=== PATIENT | male | born 1955 | race Caucasian/White ===

== ENCOUNTER 2023-04-05 10:11 | Day surgery (SDC) | payer MEDICARE ==
[~2023-04-05] VITALS: Ht 170.2 cm; Wt 102.1 kg
[~2023-04-05 10:11] MED LIST: AMLO1TAB25 PO; BAYE81TA10 PO; CARV6.25 PO; CEFUROXIME 1MG/0.1ML INTRACAMERAL INJ As Ordered ONE; CYCLOPENTOLATE 1% OPHTH SOLN 2ML BTL OS SCH; FARX1TAB3 PO; FURO40TA2 PO; LEVO112T2 PO; LIDOCAINE 1% SDV 5ML VIAL As Ordered ONE; LISI5TAB11 PO; OFLOXACIN 0.3 % (OCUFLOX) OPTH SOL 5ML OS SCH; OMEG10002 PO; PANT40TA29 PO; PHENYLEPHRINE 2.5% OPHTH SOL 2ML OS SCH; POTA-151 PO; PROPARACAINE 0.5% OPHTH SOL 15ML OS ONE; ROSU10TA6 PO; TROPICAMIDE 1% OPHTH SOLN 15ML OS SCH; VITMTA PO
[2023-04-05] MEDS ORDERED: BSS IRR 500ML/OMIDRIA 4ML IRR BAG (OR ONLY) As Ordered ONE (11:43)
[2023-04-05] MEDS ORDERED: fentaNYL 100 MCG/2 ML INJECTION As Ordered ONE (12:24)
[2023-04-05] MEDS ORDERED: MIDAZOLAM INJ 2MG/2ML VIAL As Ordered ONE (12:24)
[2023-04-05] MEDS ORDERED: TOBRADEX OPHTH OINT 3.5 GM As Ordered ONE (12:34)
[2023-04-05 12:55] VITALS: BP 135/73; TEMP 98.6; O2SAT 100
== END 2023-04-05 13:03 | disposition home or self-care (01) ==
LOC: M SDC 10:11
PROVIDERS: ATTEND Ophthalmology
DX: H25.12 Age-related nuclear cataract, left eye (principal); E11.9 Type 2 diabetes mellitus without complications; I10 Essential (primary) hypertension; E78.5 Hyperlipidemia, unspecified; E03.9 Hypothyroidism, unspecified; K21.9 Gastro-esophageal reflux disease without esophagitis; Z87.891 Personal history of nicotine dependence; N18.9 Chronic kidney disease, unspecified; Z79.82 Long term (current) use of aspirin; Z79.899 Other long term (current) drug therapy
CPT/HCPCS: 66984; J0697; J1097; J2250; J3010; V2632

== ENCOUNTER 2023-05-31 10:00 | Day surgery (SDC) | payer MEDICARE ==
[~2023-05-31] VITALS: Ht 172.7 cm; Wt 100.0 kg
[~2023-05-31 10:00] MED LIST changes: +BSS IRR 500ML/OMIDRIA 4ML IRR BAG (OR ONLY) As Ordered ONE; +CYCLOPENTOLATE 1% OPHTH SOLN 2ML BTL OD SCH; -CYCLOPENTOLATE 1% OPHTH SOLN 2ML BTL OS SCH; +OFLOXACIN 0.3 % (OCUFLOX) OPTH SOL 5ML OD SCH; -OFLOXACIN 0.3 % (OCUFLOX) OPTH SOL 5ML OS SCH; +PHENYLEPHRINE 2.5% OPHTH SOL 2ML OD SCH; -PHENYLEPHRINE 2.5% OPHTH SOL 2ML OS SCH; +PROPARACAINE 0.5% OPHTH SOL 15ML OD ONE; -PROPARACAINE 0.5% OPHTH SOL 15ML OS ONE; +TROPICAMIDE 1% OPHTH SOLN 15ML OD SCH; -TROPICAMIDE 1% OPHTH SOLN 15ML OS SCH
[2023-05-31] MEDS ORDERED: MIDAZOLAM INJ 2MG/2ML VIAL As Ordered ONE (10:14)
[2023-05-31] MEDS ORDERED: TOBRADEX OPHTH OINT 3.5 GM As Ordered ONE (11:22)
[2023-05-31 11:23] VITALS: BP 117/61; TEMP 97.1; O2SAT 95
== END 2023-05-31 11:53 | disposition home or self-care (01) ==
LOC: M SDC 10:00
PROVIDERS: ATTEND Ophthalmology
DX: H25.11 Age-related nuclear cataract, right eye (principal); I10 Essential (primary) hypertension; E78.5 Hyperlipidemia, unspecified; E11.9 Type 2 diabetes mellitus without complications; Z79.82 Long term (current) use of aspirin; Z79.899 Other long term (current) drug therapy; Z87.891 Personal history of nicotine dependence; E03.9 Hypothyroidism, unspecified; K21.9 Gastro-esophageal reflux disease without esophagitis
CPT/HCPCS: 66984; J0697; J1097; J2250; V2632